=== PATIENT | male | born 1995 | race African-American/Black ===

== ENCOUNTER 2020-05-18 14:38 | Emergency (ER) | payer MEDICAID, OTHER ==
[2020-05-18 14:56] VITALS: BP 149/88
[2020-05-18] MEDS ORDERED: LIDOCAINE 1% INJ-PF (10 MG/ML) 30 ML SDV INJ ONE (16:32)
[2020-05-18] MEDS ORDERED: CEFTRIAXONE INJ 250 MG VIAL IM ONE (16:32)
[2020-05-18] MEDS ORDERED: AZITHROMYCIN 250 MG TABLET PO ONE (16:32)
--- NOTE | 2020-05-18 16:33 | ER Document Report ---
HPI - HPI Time Seen by Provider: 05/18/20 16:27 Pain Level: Denies Context: Patient is a 24-year-old male who presents to the emergency department with a chief complaint of an STD exposure to possible chlamydia. Patient states that his significant other tested positive. He denies any penile discharge. Denies abdominal pain, dysuria, flank pain, or low back pain. Denies any past medical history. - ROS Systems Reviewed and Negative: Yes All other systems reviewed and negative - CONSTITUTIONAL Constitutional: DENIES: Fever, Chills - EENT EENT: DENIES: Sore Throat, Ear Pain, Nasal Drainage-Clear - CARDIOVASCULAR Cardiovascular: DENIES: Chest pain - RESPIRATORY Respiratory: DENIES: Trouble Breathing, Coughing - GASTROINTESTINAL Gastrointestinal: DENIES: Abdominal Pain, Nausea, Patient vomiting - URINARY Urinary: DENIES: Dysuria, Urgency, Frequency - MUSCULOSKELETAL Musculoskeletal: DENIES: Extremity pain - DERM Skin Color: Normal Skin Problems: None Past Medical History - Social History Smoking Status: Never Smoker Frequency of alcohol use: Occasional Drug Abuse: None Family History: Reviewed & Not Pertinent Vertical Provider Document - CONSTITUTIONAL Agree With Documented VS: Yes Exam Limitations: No Limitations General Appearance: No Apparent Distress - HEENT HEENT: Atraumatic, Normocephalic, PERRLA - RESPIRATORY Respiratory: Breath Sounds Normal, No Respiratory Distress - CARDIOVASCULAR Cardiovascular: Regular Rate, Regular Rhythm Pulses: Normal: Radial - GI/ABDOMEN Gastrointestinal: Abdomen Soft, Abdomen Non-Tender - REPRODUCTIVE Notes: Deferred - MUSCULOSKELETAL/EXTREMETIES Musculoskeletal/Extremeties: FROM - NEURO Level of Consciousness: Awake, Alert, Appropriate Motor/Sensory: No Motor Deficit, No Sensory Deficit - DERM Integumentary: Warm, Dry, No Rash Course - Re-evaluation Re-evalutation: 05/18/20 16:35 Patient denies any symptoms. He will be treated with azithromycin and Rocephin to cover gonorrhea and chlamydia. Urine culture sent. I have a low suspicion f or any life-threatening etiology at this time. Follow-up precautions were given. Verbal discharge instructions were given to the patient. They verbalized understanding. They are stable for discharge. - Vital Signs Vital signs: Temp Pulse Resp BP Pulse Ox 99.1 F 87 18 149/88 H 99 05/18/20 14:55 05/18/20 14:55 05/18/20 14:55 05/18/20 14:55 05/18/20 14:55 Discharge - Discharge Clinical Impression: STD exposure Condition: Stable Disposition: HOME, SELF-CARE Additional Instructions: You need to use protection every time you have sex. Failure to do so can result in transmission of infections or unintended . You have been treated for an sexually transmitted infection (STI) today. All of your partners should be tested and treated as they are also likely to be infected. Please return if you develop abdominal pain, fever, persistent vomiting, or any other symptoms that are concerning to you. Referrals: [facility] [Provider Group] - Follow up as needed
[2020-05-18 17:21] LABS: APPEARANCE,URINE CLEAR; BILIRUBIN,URINE NEGATIVE (NEGATIVE); COLOR,URINE STRAW; GLUCOSE, URINE NEGATIVE (NEGATIVE); KETONES,URINE NEGATIVE (NEGATIVE); PROTEIN,URINE NEGATIVE (NEGATIVE); URINE SPECIFIC GRAVITY 1.011; UROBILINOGEN,URINE NEGATIVE mg/dL (<2.0)
[2020-05-18 18:44] LABS: CHLAM PCR DETECTED (NOT DETECT)
== END 2020-05-18 16:57 | disposition home or self-care (01) ==
LOC: ER 14:38
DX: Z20.2 Contact with and (suspected) exposure to infections with a predominantly sexual mode of transmission (principal)
CPT/HCPCS: 99283; 96372; 81001; 87491; 87591; J3490; J0696